=== PATIENT | female | born 1985 | race Caucasian/White ===

== ENCOUNTER → 2020-07-21 13:18 | Outpatient (BNVA) | payer OTHER, SELFPAY | PROVIDERS: PCP Internal Medicine; Referring Provider Internal Medicine; Visit Provider Nurse Practitioner | DX: R19.7 Diarrhea, unspecified (principal); R63.4 Abnormal weight loss; K64.2 Third degree hemorrhoids; R68.81 Early satiety; F32.9 Major depressive disorder, single episode, unspecified | CPT/HCPCS: 99212 ==

== ENCOUNTER → 2020-08-18 15:11 | Outpatient (BNVA) | payer OTHER, SELFPAY | PROVIDERS: PCP Internal Medicine; Visit Provider Nurse Practitioner | DX: Z76.89 Persons encountering health services in other specified circumstances (principal) ==

== ENCOUNTER 2020-10-24 08:55 | Outpatient (REF) | payer OTHER, SELFPAY ==
--- NOTE | ~2020-10-24 | US_ITS ---
EXAMINATION: US PELVIS COMPLETE US PELVIS TRANSVAGINAL CLINICAL INFORMATION: Right ovarian cyst. COMPARISON: Ultrasound pelvis 05/06/2020 TECHNIQUE: Transabdominal and transvaginal ultrasound of pelvis is performed. FINDINGS: The uterus is anteverted measuring 7.7 cm in length, 4.4 cm in AP and 7.0 cm in transverse dimension. Endometrial thickness is 0.19 cm. There are multiple nabothian cysts seen in the cervix with prominent uterine veins and bilateral pelvic congestion. There are small anechoic nabothian cysts in the cervix. Right ovary measures 3.6 x 2.6 x 2.9 cm and volume 13.9 mL. There is a complex echogenic cyst with internal echoes measuring 2.2 x 1.8 x 1.9 cm. Previously, it measured 1.9 x 1.7 x 1.7 cm. Left ovary measures 3.1 x 1.8 x 2.2 cm and volume 6.4 mL. Previously, it measured 2.4 x 2.1 x 1.8 cm and volume 4.8 mL. There is trace free fluid in the endometrium. Prominent uterine veins are visualized in bilateral adnexa suggestive of pelvic venous congestion. US/US transvaginal IMPRESSION: Minimal increase in the right complex ovarian cyst from 1.9 cm to 2.2 cm. Unremarkable left ovary. Small nabothian cysts in the cervix. The uterus is unremarkable.
--- NOTE | ~2020-10-24 | US_ITS ---
EXAMINATION: US PELVIS COMPLETE US PELVIS TRANSVAGINAL CLINICAL INFORMATION: Right ovarian cyst. COMPARISON: Ultrasound pelvis 05/06/2020 TECHNIQUE: Transabdominal and transvaginal ultrasound of pelvis is performed. FINDINGS: The uterus is anteverted measuring 7.7 cm in length, 4.4 cm in AP and 7.0 cm in transverse dimension. Endometrial thickness is 0.19 cm. There are multiple nabothian cysts seen in the cervix with prominent uterine veins and bilateral pelvic congestion. There are small anechoic nabothian cysts in the cervix. Right ovary measures 3.6 x 2.6 x 2.9 cm and volume 13.9 mL. There is a complex echogenic cyst with internal echoes measuring 2.2 x 1.8 x 1.9 cm. Previously, it measured 1.9 x 1.7 x 1.7 cm. Left ovary measures 3.1 x 1.8 x 2.2 cm and volume 6.4 mL. Previously, it measured 2.4 x 2.1 x 1.8 cm and volume 4.8 mL. There is trace free fluid in the endometrium. Prominent uterine veins are visualized in bilateral adnexa suggestive of pelvic venous congestion. US/US pelvic complete IMPRESSION: Minimal increase in the right complex ovarian cyst from 1.9 cm to 2.2 cm. Unremarkable left ovary. Small nabothian cysts in the cervix. The uterus is unremarkable.
== END 2020-10-24 08:56 | disposition home or self-care (01) ==
LOC: HO.HMGCX 08:55
PROVIDERS: Visit Provider Advanced Practice Midwife
DX: N83.201 Unspecified ovarian cyst, right side (principal)
CPT/HCPCS: 76830; 76856

== ENCOUNTER → 2020-10-28 15:49 | Outpatient (BNVA) | payer OTHER, SELFPAY | PROVIDERS: Visit Provider Advanced Practice Midwife ==

== ENCOUNTER 2020-10-31 10:04 | Outpatient (REF) | payer OTHER, SELFPAY ==
[2020-11-01 05:57] LABS: CA-125 24 U/mL (<35)
== END 2020-10-31 10:05 | disposition home or self-care (01) ==
LOC: HO.LAB 10:04
PROVIDERS: PCP Internal Medicine; Visit Provider Advanced Practice Midwife
DX: N83.299 Other ovarian cyst, unspecified side (principal); M53.3 Sacrococcygeal disorders, not elsewhere classified
CPT/HCPCS: 36415; 86304

== ENCOUNTER → 2020-11-20 14:52 | Outpatient (BNVA) | payer OTHER, SELFPAY | PROVIDERS: PCP Internal Medicine; Visit Provider Nurse Practitioner ==

== ENCOUNTER 2020-12-26 09:10 | Outpatient (REF) | payer OTHER, SELFPAY ==
--- NOTE | ~2020-12-26 | XR_ITS ---
EXAMINATION: DORSAL SPINE SERIES LUMBOSACRAL SPINE SERIES CLINICAL INFORMATION: Pain COMPARISON: None TECHNIQUE: 3 views of the dorsal spine. 3 views of lumbar sacral spine. FINDINGS: Dorsal spine: Vertebral bodies normally aligned. Disc spaces normal. No fracture or bone lesion. Surrounding soft tissues normal. No scoliosis. Lumbosacral spine: Vertebral bodies normally aligned. Disc spaces normal. Facets normal. No fracture or bone lesion. Surrounding soft tissues normal. Partially visualized pelvis including sacroiliac joints normal. XR/XR lumbar spine 2-3V IMPRESSION: Normal x-ray series of the dorsal spine and lumbar sacral spine.
--- NOTE | ~2020-12-26 | XR_ITS ---
EXAMINATION: XR PELVIS CLINICAL INFORMATION: Pain COMPARISON: Report of x-ray of the coccyx March 2012. TECHNIQUE: AP view of the pelvis. FINDINGS: The bones and soft tissues are normal. No fracture. Sacroiliac and hip joints are normal. Pubic symphysis is normal. No abnormal soft tissue calcifications. XR/XR pelvis 1-2V IMPRESSION: Normal pelvis.
--- NOTE | ~2020-12-26 | XR_ITS ---
EXAMINATION: DORSAL SPINE SERIES LUMBOSACRAL SPINE SERIES CLINICAL INFORMATION: Pain COMPARISON: None TECHNIQUE: 3 views of the dorsal spine. 3 views of lumbar sacral spine. FINDINGS: Dorsal spine: Vertebral bodies normally aligned. Disc spaces normal. No fracture or bone lesion. Surrounding soft tissues normal. No scoliosis. Lumbosacral spine: Vertebral bodies normally aligned. Disc spaces normal. Facets normal. No fracture or bone lesion. Surrounding soft tissues normal. Partially visualized pelvis including sacroiliac joints normal. XR/XR thoracic spine 2V IMPRESSION: Normal x-ray series of the dorsal spine and lumbar sacral spine.
[2020-12-26 10:59] LABS: MANUAL DIFF FLAG NO
[2020-12-26 11:06] LABS: Basophils Percent Auto 0.9 % (0-2); Eosinophils Absolute Auto 0.2 X10*3/uL (0.0-0.4); Eosinophils Percent Auto 4.2 % (0-4); Hematocrit 36.6 % (37-47); Hemoglobin 11.9 g/dl (12.0-16.0); Imm Gran Abs Auto 0.02 X10*3/uL (0.00-0.03); Imm Gran Pct Auto 0.5 % (0.0-0.4); Lymphocytes Absolute Auto 1.3 X10*3/uL (1.2-4.9); Lymphocytes Percent Auto 30.5 % (20-40); Mean Corpuscular HGB Conc 32.5 g/dl (31.0-35.0); Mean Corpuscular Hemoglobin 29.8 pg (27.0-33.0); Mean Corpuscular Volume 91.7 fL (80-98); Mean Platelet Volume 10.4 fL (9.4-12.3); Monocytes Absolute Auto 0.3 X10*3/uL (0.1-1.2); Monocytes Percent Auto 6.3 % (2-11); Neutrophils Absolute Auto 2.5 X10*3/uL (2.0-8.3); Neutrophils Percent Auto 57.6 % (45-73); Platelet Count 200 X10*3/uL (160-400); Red Blood Count 3.99 X10*6/uL (4.20-5.50); Red Cell Distribution Width 13.1 % (11.0-16.0); White Blood Count 4.3 X10*3/uL (4.8-10.8)
[2020-12-26 11:46] LABS: Alanine Aminotransferase 19 U/L (0-31); Albumin Level 4.6 g/dL (3.5-5.0); Alkaline Phosphatase 48 U/L (39-117); Anion Gap 12 (12-20); Aspartate Amino Transferase 20 U/L (5-31); Bilirubin Total 0.4 mg/dL (0.0-1.0); Blood Urea Nitrogen 8 mg/dL (9-16); C Reactive Protein 0.03 mg/dL (< or = 0.50); Calcium 9.2 mg/dL (8.4-10.2); Carbon Dioxide 30 mmol/L (22-29); Chloride 104 mmol/L (96-108); Estimated Glomerular Filt Rate > 60; Glucose Random 86 mg/dL (60-115); Potassium 4.9 mmol/L (3.3-5.1); Rheumatoid Factor < 15.0 IU/mL (<15.0); Sodium 141 mmol/L (135-145); Total Protein 7.3 g/dL (6.5-8.0)
[2020-12-26 11:48] LABS: Erythrocyte Sedimentation Rate 5 MM/HR (0-20)
[2020-12-28 14:47] LABS: Anti Nuclear Antibody Screen NEGATIVE (NEGATIVE)
[2020-12-28 23:02] LABS: Cyclic Citrullinated Peptide <16 UNITS
[2020-12-29 20:26] LABS: Vitamin D 25-OH, D2 <4 ng/mL; Vitamin D 25-OH, D3 26 ng/mL; Vitamin D 25-OH, Total 26 ng/mL (30-100)
[2021-01-01 15:11] LABS: HLA B27 Positive (Negative)
== END 2020-12-26 09:11 | disposition home or self-care (01) ==
LOC: HO.LAB 09:10
PROVIDERS: Absent Provider Internal Medicine; PCP Internal Medicine; Visit Provider Student in an Organized Health Care Education/Training Program
DX: M25.50 Pain in unspecified joint (principal); M53.3 Sacrococcygeal disorders, not elsewhere classified
CPT/HCPCS: 36415; 72070; 72100; 72170; 80053; 82306; 84443; 85025; 85652; 86038; 86039; 86140; 86200; 86431; 86812; 99202

== ENCOUNTER → 2021-01-23 13:47 | Outpatient (BNVA) | payer OTHER, SELFPAY | PROVIDERS: Visit Provider Student in an Organized Health Care Education/Training Program ==

== ENCOUNTER 2021-02-03 18:38 | Outpatient (REF) | payer OTHER, SELFPAY ==
--- NOTE | ~2021-02-03 | MR_ITS ---
EXAMINATION: MR PELVIS WITHOUT CONTRAST CLINICAL INFORMATION: M53.3 - Sacrococcygeal disorders, not elsewhere classified. Pain with symptoms x1 year COMPARISON: Radiograph dated 12/26/2020 TECHNIQUE: Multiplanar MR imaging was obtained through the pelvis without contrast on a 1.5 Amada magnet. FINDINGS: At the left SI joint, there is focal subarticular sclerosis and edema signal involving the iliac and sacral sides of the joint with small marginal osteophytes, likely due to mild degenerative arthrosis. Right SI joint appears relatively well preserved by comparison. Bone marrow signal is otherwise normal. Imaged portions of the hips are unremarkable. Pubic symphysis is normal on these images. The coccyx is normal in appearance on these images. No appreciable fractures or edema signal. Coccygeal angulation appears normal. There is a small left paracentral disc protrusion at the L5-S1 disc which abuts the exiting left S1 nerve roots in the subarticular zone. Musculature is normal in signal intensity. No appreciable atrophy, edema signal, or fatty replacement. Tendons are intact. No joint effusion or bursitis. There is a small amount of intraperitoneal free fluid, possibly physiologic. At the right ovary, there is a 1.9 x 1.5 x 2.1 cm cystic lesion with increased signal intensity on T1-weighted images and diminished signal intensity on STIR images. 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 No appreciable findings of acute sacroiliitis. Normal MR appearance of the coccyx. No acute findings in this region. A 2.1 cm right ovarian lesion which is favored to correspond to a dermoid cyst (mature cystic teratoma). An endometrioma is on the differential, though felt to be less likely. Small left paracentral disc protrusion at L5-S1.
== END 2021-02-03 18:39 | disposition home or self-care (01) ==
LOC: HO.MRI 18:38
PROVIDERS: Visit Provider Student in an Organized Health Care Education/Training Program
DX: M53.3 Sacrococcygeal disorders, not elsewhere classified (principal); N83.291 Other ovarian cyst, right side
CPT/HCPCS: 72195

== ENCOUNTER 2022-07-05 11:03 | Outpatient (REF) | payer OTHER, SELFPAY ==
--- NOTE | ~2022-07-05 | MM_ITS ---
EXAMINATION: MM DIAGNOSTIC DIGITAL BREAST TOMOSYNTHESIS, BILATERAL US DIAGNOSTIC ULTRASOUND BREAST, BILATERAL CLINICAL INFORMATION: 37-year-old with chronic bilateral palpable fullness periareolar upper outer left breast and periareolar upper outer right breast. Chronic bilateral milky nipple discharge with squeezing. No spontaneous discharge. Prior mammography at outside facility approximately 10 years ago, purged. The lifetime risk of breast cancer based on the Tyrer-Cuzick Model is 13%. COMPARISON: None (current study represents new baseline exam). TECHNIQUE: Digital breast tomosynthesis is performed in both the craniocaudal and mediolateral oblique views along with computer-aided detection (CAD). Synthesized 2D images are generated from the tomosynthesis. Ultrasound ultrasound bilateral breasts is targeted to the areas of clinical concern as well as the bilateral retroareolar and periareolar breast. Patient is able to point to the areas of clinical concern at time of imaging. Grayscale imaging and color Doppler are performed without and with harmonics. FINDINGS: The breasts are heterogeneously dense, which may obscure small masses (ACR BI-RADS breast composition Category c). There are no significant masses, abnormal calcifications, or other abnormalities. There is no architectural abnormality. No focal duct ectasia. The axilla and skin contours are unremarkable. Ultrasound bilateral breasts demonstrates no cystic or solid mass or architectural abnormality. No focal duct ectasia. No skin thickening or edema tracking in soft tissue planes. Results are discussed with the patient at time of visit. MM/MM tomosynthesis diagnostic BI IMPRESSION: 1. No mammographic evidence of malignancy. 2. Unremarkable bilateral targeted breast ultrasound ASSESSMENT: BI-RADS 1: Negative RECOMMENDATION: 1. Patient should be managed based on the clinical impression. If there remains a clinically palpable concern, further assessment may be considered with surgical consult. Chronic bilateral nipple discharge could be correlated with serum laboratories for systemic endocrine etiology. 2. Otherwise, routine annual screening mammography. This patient's information was entered into a reminder system with a target due date for their next mammogram.
== END 2022-07-05 11:04 | disposition home or self-care (01) ==
LOC: HO.MAMMO 11:03
PROVIDERS: Visit Provider Nurse Practitioner Family
DX: N63.15 Unspecified lump in the right breast, overlapping quadrants (principal); N63.21 Unspecified lump in the left breast, upper outer quadrant
CPT/HCPCS: 76642; 77062; 77066

== ENCOUNTER → 2022-08-23 11:09 | Outpatient (BNVA) | payer OTHER, SELFPAY | PROVIDERS: PCP Internal Medicine; Visit Provider Surgery | DX: K64.8 Other hemorrhoids (principal); K64.4 Residual hemorrhoidal skin tags; L29.0 Pruritus ani; Z80.41 Family history of malignant neoplasm of ovary | CPT/HCPCS: 46600; 99202 ==

== ENCOUNTER 2022-09-10 16:53 | Outpatient (REF) | payer OTHER, SELFPAY ==
--- NOTE | ~2022-09-10 | XR_ITS ---
EXAMINATION: XR CHEST CLINICAL INFORMATION: Cough COMPARISON: Previous chest x-ray from 2009 TECHNIQUE: 2 views of the chest were obtained. FINDINGS: The cardiac and mediastinal contours are normal. There are bibasilar infiltrates probably representing pneumonia. Upper lungs are clear. No pleural effusion or pneumothorax. There are degenerative changes of the spine. XR/XR chest 2V IMPRESSION: Bibasilar pneumonia. Findings will be communicated by the [facility] work flow inside sales consultant.
== END 2022-09-10 16:54 | disposition home or self-care (01) ==
LOC: HO.XRAY 16:53
PROVIDERS: PCP Internal Medicine; Visit Provider Internal Medicine
DX: R05.9 Cough, unspecified (principal)
CPT/HCPCS: 71046

== ENCOUNTER → 2022-10-06 08:54 | Outpatient (BNVA) | payer OTHER, SELFPAY | PROVIDERS: PCP Internal Medicine; Referring Provider Internal Medicine; Visit Provider Surgery | DX: Z71.2 Person consulting for explanation of examination or test findings (principal); Z80.41 Family history of malignant neoplasm of ovary | CPT/HCPCS: 99212 ==

== ENCOUNTER 2023-02-26 13:13 | Emergency (ER) | payer OTHER, SELFPAY ==
--- NOTE | ~2023-02-26 | CT_ITS ---
EXAMINATION: CT HEAD WITHOUT CONTRAST CLINICAL INFORMATION: Headache. COMPARISON: No relevant prior imaging. TECHNIQUE: Contiguous axial imaging was performed from the skull base to vertex without intravenous administration of contrast. This CT examination was performed using dose optimization techniques as appropriate, variously including the following: *Automated exposure control *Adjustment of mA and/or kV according to patient size (this includes techniques or standardized protocols for targeted exams where dose is matched to indication/reason for exam; i.e. extremities or head) *Use of iterative reconstruction technique DLP: 630 mGy-cm FINDINGS: There is no acute intracranial hemorrhage or abnormal extra-axial collection. No intracranial mass effect or midline shift. Lateral and third ventricles are normal. No hydroceles. Mckenzie-white matter differentiation is preserved and there is no evidence of acute territorial infarct. The calvarium and skull base are intact. Mastoid air cells and middle ear cavities are well aerated. No active paranasal sinus disease. CT/CT head/brain wo IV con IMPRESSION: Normal CT scan of the head.
[2023-02-26 13:16] VITALS: BP 125/80; PULSE 100; RESP 18; TEMP 36.7; O2SAT 98; BMI 19.8
--- NOTE | 2023-02-26 13:16 | ED_ITS ---
HPI - Neuro Symptoms/Deficit General Chief Complaint: Neuro Symptoms/Deficit Stated Complaint: quest of stroke Time Seen by Provider: 02/26/23 16:07 Source: patient Mode of arrival: ambulatory Limitations: no limitations History of Present Illness HPI Narrative: [age] year female with history of anxiety, OCD. Patient presented today for evaluation of 5-10 minutes episode of left eye blurry vision and seeing in 1 dimension, lasted for about 10 minutes and followed by headache behind the left eye, patient declined any weakness or numbness, patient stated that all her symptoms resolved completely after 20-30 minutes of the episodes, decline weakness, numbness, or speech problem. No fever, no chills, not using contraceptive hormonal therapy, no history of stroke or DVT. Related Data Previous Rx's Medication Instructions Recorded menthol 0.44 %-zinc oxide 20.6 % 1 appl topical QID PRN hemorrhoids 08/23/22 topical ointment (Calmoseptine) #113 grams psyllium husk 3.4 gram/5.4 gram 1 tsp PO BID #660 grams 08/23/22 oral powder (Metamucil) fluvoxamine 50 mg tablet 25 mg PO BEDTIME 90 days #45 tabs 02/27/23 Allergies Allergy/AdvReac Type Severity Reaction Status Date / Time milk Allergy Intermediate Stomach Verified 10/20/22 13:55 Upset fluoxetine [From Prozac] Allergy Mild rash Verified 10/20/22 13:55 Dust Mite Mixed Allergen Ext Allergy Intermediate red itchy Uncoded 10/20/22 13:55 rash Review of Systems Review of Systems: All other systems are reviewed and are negative Constitutional: Reports as per HPI and Reports no additional constitutional complaints Eyes: Reports as per HPI and Reports no additional eye complaints Reports system reviewed and no additional complaints, except as documented Cardiovascular: Reports as per HPI and Reports no additional cardiovascular com plaints Respiratory: Reports as per HPI and Reports no additional respiratory complaints Gastrointestinal: Reports as per HPI and Reports no additional gastrointestinal complaints Genitourinary: Reports no additional female genitourinary complaints Musculoskeletal: Reports no additional musculoskeletal complaints Skin/Breast: Reports system reviewed and no additional complaints, except as docu Psychiatric: Reports no additional psychiatric complaints Endocrine: Reports no additional endocrine complaints Hematologic/Lymphatic: Reports no additional hematologic/lymphatic complaints Allergic/Immunologic: Reports no additional allergic/immunologic complaints Reports system reviewed and no additional complaints, except as documented and Reports Abnormal speech present PMFSH Past Medical History Medical History Allergies Anxiety Chest wall pain Encounter to discuss test results Family history of ovarian cancer Hypovitaminosis D Iron deficiency anemia due to chronic blood loss Pruritus ani Right ovarian cyst Sacral pain Severe major depression without psychotic features Surgical History History of colonoscopy Hx of endoscopy Family History Family History Father Mental health disorder Substance use disorder Mother Hx of heart disorder Mental health disorder Substance use disorder Maternal Grandmother Ovarian cancer Social History Social History Household Members: Spouse and Children Housing: Apartment Alcohol intake: never Patient Tobacco Use Status: Former Tobacco user Tobacco use type: Cigarette Smoked in Last 30 Days: No e-Cigarette/Vaping Use: Never Used Second Hand Smoke Exposure: No Substance Use Type: Marijuana Advance Directives: No Advance Directives Information Provided: No Patient : No service: No Current occupational status: unemployed Cognitive needs: No Hearing needs: No Vision needs: No Physical Exam Vital Signs: Vital Signs: Last Vital Signs Temp 98.2 F 02/26/23 18:55 Pulse 61 02/26/23 18:55 Resp 16 02/26/23 18:55 BP 118/40 L 02/26/23 18:55 Pulse Ox 98 02/26/23 18:55 O2 Del Method Room Air 02/26/23 18:55 BMI result Body Mass Index 19.8 Vital signs have been reviewed as appeared to be correct. Blood pressure normal. Heart rate normal. Respiration rate normal. Temperature normal. Oxy gen saturation normal. Appearance: Alert. Oriented X3. No acute distress. Head: Normal external exam. Normocephalic. Atraumatic. No Harper signs noted. No raccoon eyes noted Eyes: PERRLA. EOMI. Conjunctiva and sclera normal. Eyelids normal. No left temporal tenderness on percussion. Visual acuity left 20/50 right 20/30, pupil reactive bilaterally, IOP equal 12 bilaterally, normal retinal exam. ENT: TM's Normal. Pharynx normal. Uvula midline. Moist mucous membranes. No trismus noted. No drooling noted. No muffled voice noted. Neck: Normal inspection. Neck supple. FROM. No adenopathy. Thyroid Normal. No meningeal signs. No neck mass noted. CVS: Normal heart rate and rhythm. Heart sound normal. No murmurs noted. Pulses normal throughout. Respiratory: No respiratory distress. Painless inspiration. Breath sounds normal. No wheezes/rales/rhonchi noted. Chest nontender. No accessory muscle usage noted or decreased air movement noted. Abdomen: Soft and nontender. Bowel sounds normal in all 4 quadrants. No distention noted. No organomegaly noted. No visible injury noted. 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 Unremarkable, normal inspection no venous congestion was noted, speculum and bimanual exam was not done. Back: No CVA tenderness. Full range of motion noted. Skin: Skin warm and dry. Normal skin color. Normal skin turgor. No rashes/les ions/lacerations noted. Extremities: No lower extremity edema. Extremities exhibit normal range of motion. Extremities nontender. Neuro: Oriented X 3. Cranial nerve exam: II-XII are grossly intact No motor deficit. No sensory deficit. Reflexes normal. Course Course Course Narrative: RME - 37 y/o female presents to the ER for evaluation of transient vision changes in the left eye that occurred at 9:30 am today, lasted 10-15 minutes. She reports vision was very blurry in the left eye and 1D followed by a headache in the left forehead area. Now back to baseline. Admits to bad anxiety the last few days but she is concerned about a TIA. Plan: visual acuity, full neuro exam, lab workup Reevaluation(s) Reevaluation #1: 37-year-old female history of anxiety came in with transient left visual disturbance, apparently patient neurologically intact, normal neuro exam, normal head CT making neurological etiology for the patient's symptoms is extremely unlikely, patient also had normal inflammatory marker with normal eye exam. Patient symptoms is likely due to anxiety or atypical migraine, or stress as patient admitted to having stressful time in her life. Medical Decision Making Differential Diagnosis Differential Diagnoses: The differential diagnosis associated with the presentation includes (TIA, CVA, temporal arteritis, closed angle glaucoma, hypoglycemia, anxiety, severe anemia, electrolyte abnormalities.) Admission/Observation Consideration of admission/observation: Escalation of care including admission/observation considered Lab Data MDM Lab Attestation statement: I reviewed the patient's lab results. 02/26/23 13:31 02/26/23 13:31 Labs: Lab Results 02/26/23 02/26/23 Range/Units 13:31 13:31 WBC 4.7 L (4.8-10.8) X10*3/uL RBC 3.92 L (4.20-5.50) X10*6/uL Hgb 11.8 L (12.0-16.0) g/dl Hct 34.4 L (37.0-47.0) % MCV 87.8 (80.0-98.0) fL MCH 30.1 (27.0-33.0) pg MCHC 34.3 (31.0-35.0) g/dl RDW 12.9 (11.0-16.0) % Plt Count 174 (160-400) X10*3/uL MPV 10.1 (9.4-12.3) fL Immature Gran % (Auto) 0.2 (0.0-0.4) % Neut % (Auto) 68.4 (45-73) % Lymph % (Auto) 24.7 (20-40) % [place] % (Auto) 4.9 (2-11) % Eos % (Auto) 0.9 (0-4) % Baso % (Auto) 0.9 (0-2) % Lymph # (Auto) 1.2 (1.2-4.9) X10*3/uL [place] # (Auto) 0.2 (0.1-1.2) X10*3/uL Eos # (Auto) 0.0 (0.0-0.4) X10*3/uL Baso # (Auto) 0.0 (0.0-0.2) X10*3/uL Abs Immat Gran (auto) 0.01 (0.00-0.03) X10*3/uL Absolute Neuts (auto) 3.2 (2.0-8.3) x10*3/uL Absolute Nucleated RBC 0.000 (0.0-0.012) X10*3/uL Nucleated RBC % (auto) 0.0 (0.0-0.2) /100WBC Sodium 140 (135-145) mmol/L Potassium 4.0 (3.3-5.1) mmol/L Chloride 106 (96-108) mmol/L Carbon Dioxide 26 (22-29) mmol/L Anion Gap 12 (12-20) BUN 10 (9-16) mg/dL Creatinine 0.74 (0.5-1.4) mg/dL Estim Creat Clear Calc 94.9 Estimated GFR > 60 Random Glucose 110 (60-115) mg/dL Calcium 9.5 (8.4-10.2) mg/dL Magnesium 2.0 (1.6-2.6) mg/dL Total Bilirubin 0.5 (0.0-1.0) mg/dL Direct Bilirubin 0.1 (0.0-0.5) mg/dL AST 19 (5-31) U/L ALT 14 (0-31) U/L Alkaline Phosphatase 46 (39-117) U/L C-Reactive Protein < 0.10 (< or = 0.50) mg/dL Total Protein 7.3 (6.5-8.0) g/dL Albumin 4.5 (3.5-5.0) g/dL Beta HCG, Quant < 2 mIU/mL Independent Interpretation I performed an independent interpretation of an: EKG (Normal sinus rhythm at 58 beats per minutes, normal axis deviation, normal intervals, no ST-T changes.) and CT Scan (Head: Unremarkable head CT.) Radiology Impression Discussion of test interpretation with radiology: I have reviewed the radiolog ist's reading. Discharge Plan Discharge Clinical Impression: Blurred vision, left eye Patient Disposition: Home, Self-Care Instructions: Blurred Vision (ED) Prescriptions: No Action fluvoxamine 50 mg tablet 25 mg PO BEDTIME 90 Days Qty: 45 1RF menthol-zinc oxide [Calmoseptine] 0.44-20.6 % ointment 1 appl topical QID PRN (Reason: hemorrhoids) Qty: 113 1RF Metamucil 3.4 gram/5.4 gram powder 1 tsp PO BID Qty: 660 0RF Rx Instructions: mix 1 tbsp into at least 4 oz water or juice before administering Referrals: Jose Juan Hernandez [Physician] - Blossom Solitario MD [Primary Care Provider] - Interventions: ED Discharge Assessment Last Done: 02/26/23 19:00 Discharge Date/Time: 02/26/23 19:01
[2023-02-26 13:34] LABS: MANUAL DIFF FLAG NO
[2023-02-26 13:40] LABS: Basophils Percent Auto 0.9 % (0-2); Eosinophils Percent Auto 0.9 % (0-4); Hematocrit 34.4 % (37.0-47.0); Hemoglobin 11.8 g/dl (12.0-16.0); Imm Gran Abs Auto 0.01 X10*3/uL (0.00-0.03); Imm Gran Pct Auto 0.2 % (0.0-0.4); Lymphocytes Absolute Auto 1.2 X10*3/uL (1.2-4.9); Lymphocytes Percent Auto 24.7 % (20-40); Mean Corpuscular HGB Conc 34.3 g/dl (31.0-35.0); Mean Corpuscular Hemoglobin 30.1 pg (27.0-33.0); Mean Corpuscular Volume 87.8 fL (80.0-98.0); Mean Platelet Volume 10.1 fL (9.4-12.3); Monocytes Absolute Auto 0.2 X10*3/uL (0.1-1.2); Monocytes Percent Auto 4.9 % (2-11); Neutrophils Absolute Auto 3.2 x10*3/uL (2.0-8.3); Neutrophils Percent Auto 68.4 % (45-73); Platelet Count 174 X10*3/uL (160-400); Red Blood Count 3.92 X10*6/uL (4.20-5.50); Red Cell Distribution Width 12.9 % (11.0-16.0); White Blood Count 4.7 X10*3/uL (4.8-10.8)
[2023-02-26 14:00] LABS: Alanine Aminotransferase 14 U/L (0-31); Albumin Level 4.5 g/dL (3.5-5.0); Alkaline Phosphatase 46 U/L (39-117); Anion Gap 12 (12-20); Aspartate Amino Transferase 19 U/L (5-31); Bilirubin Direct 0.1 mg/dL (0.0-0.5); Bilirubin Total 0.5 mg/dL (0.0-1.0); Blood Urea Nitrogen 10 mg/dL (9-16); Calcium 9.5 mg/dL (8.4-10.2); Carbon Dioxide 26 mmol/L (22-29); Chloride 106 mmol/L (96-108); Creatinine Clr Calc Pharmacy 94.9; Estimated Glomerular Filt Rate > 60; Glucose Random 110 mg/dL (60-115); Sodium 140 mmol/L (135-145); Total Protein 7.3 g/dL (6.5-8.0)
[2023-02-26 15:21] VITALS: BP 101/51; PULSE 62; RESP 16; TEMP 36.8; O2SAT 100
--- NOTE | 2023-02-26 16:37 | ECG_ITS ---
Test Reason : L EYE BLURRY Blood Pressure : / mmHG Vent. Rate : 057 BPM Atrial Rate : 057 BPM P-R Int : 114 ms QRS Dur : 090 ms QT Int : 416 ms P-R-T Axes : 042 081 056 degrees QTc Int : 404 ms Sinus bradycardia with marked sinus arrhythmia Otherwise normal ECG When compared with ECG of 16-JUN-2009 11:11, No significant change was found Referred By: Kris Woods Electronically Signed By:Santy Kay
[2023-02-26 16:40] LABS: C Reactive Protein < 0.10 mg/dL (< or = 0.50)
[2023-02-26 16:42] LABS: HCG Quantitative < 2 mIU/mL
--- NOTE | 2023-02-26 17:35 | PC.NURSE ---
pt had a negative ct scan and unremarkable head ct scan. she reports a headache over her left eye, no neuro signs noted otherwise
[2023-02-26 18:55] VITALS: BP 118/40; PULSE 61; RESP 16; TEMP 36.8; O2SAT 98
== END 2023-02-26 19:01 | disposition home or self-care (01) ==
PROVIDERS: Physician Assistant; Emergency Provider Emergency Medicine; PCP Internal Medicine
DX: H53.8 Other visual disturbances (principal); Z79.899 Other long term (current) drug therapy; Z87.891 Personal history of nicotine dependence; F12.90 Cannabis use, unspecified, uncomplicated
CPT/HCPCS: 36415; 70450; 80048; 80076; 83735; 84702; 85025; 86140; 93005; 99284; 99285

== ENCOUNTER 2024-08-30 09:11 | Outpatient (REF) | payer OTHER, SELFPAY ==
[2024-08-31 15:06] LABS: CT PCR NOT DETECTED (Not Detect.); NG PCR NOT DETECTED (Not Detect.)
[2024-08-31 17:22] LABS: Bacterial Vaginosis PCR NEGATIVE (Negative); Candida Group PCR NOT DETECTED (Not Detect); Candida glab krusei PCR NOT DETECTED (Not Detect); Trichomonas vaginalis PCR NOT DETECTED (Not Detect)
== END 2024-08-30 09:12 | disposition home or self-care (01) ==
LOC: HO.LAB 09:11
PROVIDERS: PCP Internal Medicine; Visit Provider Advanced Practice Midwife
DX: Z01.419 Encounter for gynecological examination (general) (routine) without abnormal findings (principal); N93.0 Postcoital and contact bleeding
CPT/HCPCS: 0352U; 81003; 81025; 87491; 87591; 99386; 99459

== ENCOUNTER 2024-08-30 09:11 | Outpatient (AMB) | payer OTHER, SELFPAY ==
--- NOTE | 2024-08-30 09:12 | MHC.OFFVIS ---
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 She denies any history of vaginal discharge, odor, urinary symptoms, or pelvic pain. Current control method is vasectomy. History of complex ovarian cyst in 2019 and was referred to see Dr. Rubalcava at [facility] which the patient reports she had continued care until this cyst had resolved. 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 She had deferred her Paps in the past but would like to complete her exam today. She admits to not eating a healthy diet and has a low appetite. Family history of ovarian cancer. [facility] Medical History (Updated 08/30/24 @ 12:48 by Shirley Salguero CNM) Autism PCB (post coital bleeding) Family history of ovarian cancer Pruritus ani Severe major depression without psychotic features Chest wall pain Iron deficiency anemia due to chronic blood loss Hypovitaminosis D Allergies Anxiety Sacral pain Surgical History Hx of endoscopy History of colonoscopy Family History Father Mental health disorder Substance use disorder Mother Hx of heart disorder Mental health disorder Substance use disorder Maternal Grandmother Ovarian cancer Social History Household Members: Spouse and Children Housing: Apartment Alcohol intake: never Patient Tobacco Use Status: Former Tobacco user Tobacco use type: Cigarette e-Cigarette/Vaping Use: Never Used Second Hand Smoke Exposure: No Substance Use Type: Marijuana service: No Current occupational status: unemployed Cognitive needs: No Hearing needs: No Vision needs: No Female Reproductive History Menstrual Date of last menstrual period: 08/02/24 control method: other (vasectomy) Total pregnancies: 2 Full term: 2 Number of Living Children: 2 History of abnormal pap smear: Yes (age 16 HPV) Review of Systems Const All systems reviewed & are unremarkable except as noted in HPI and below Reports as per HPI Eyes Reports no additional complaints ENT Reports no additional complaints Card Reports no additional complaints Resp Reports no additional complaints GI Reports as per HPI and Reports no additional complaints Reports as per HPI Musc Reports no additional complaints Skin/Breast Reports as per HPI Neuro Reports no additional complaints Psych Reports no additional complaints Endo Reports no additional complaints Edgar/Lymph Reports no additional complaints Aller/Immun Reports no additional complaints Physical Exam Vital Signs: Last Vital Signs BP 110/68 08/30/24 09:13 BMI result Body Mass Index 21.0 Const General: cooperative, healthy appearing and no acute distress Orientation/consciousness: patient oriented x3 HEENT Head: Yes normal to inspection Eyes General: appearance normal, both eyes and all related structures Neck Neck: Yes normal visual inspection Thyroid: Thyroid normal Chest Chest palpation & inspection: normal inspection of the chest and other (no puckering, dimpling, peau de orange, retraction, discharge, masses) Breast/axilla inspection: normal inspection of the breasts Breast/axilla palpation: normal palpation of the breasts Resp Effort & Inspection: normal respiratory effort GI Inspection: Yes normal to inspection Palpation (GI): Soft to palpation and Other GI palpation findings present (Nontender) Rectal Exam - Female: visual inspection normal General: Yes bladder normal to palpation External Female Exam: normal appearance of the urethra Speculum Exam - Vagina: normal appearance of the vagina, normal palpation and normal vaginal discharge Speculum Exam - Cervix: normal appearance of the cervix and normal palpation Bimanual exam- vagina & uterus: normal bimanual exam, normal palpation, uterine size normal, bladder normal to palpation, normal palpation, uterine shape normal and non-tender Bimanual Exam- Adnexa, other: normal adnexae Skin General skin exam: no rashes or lesions noted Rashes: no rashes Neuro General: patient oriented x3 Cognition (Neuro): normal cognition Extrem General: Yes normal to inspection Psych Attitude: cooperative Thought process: Normal thought process present Results AMB Test Urine AMB Test Urine Negative Last Edit by BOB Murray on 08/30/24 09:29 AMB Urinalysis, Automated UA Leukoctes 2 Flavio/uL Last Edit by BOB Murray on 08/30/24 09:29 UA Nitrite Negative Last Edit by Danyelle Kelley Abner on 08/30/24 09:29 UA Urobilinogen 0 mg/dL Last Edit by Danyelle Kelley Abner on 08/30/24 09:29 UA Protein 0.5 mg/dL Last Edit by Danyelle Kelley Abner on 08/30/24 09:29 UA pH 6.0 Last Edit by Danyelle Kelley Abner on 08/30/24 09:29 UA Blood 0.5 Nikolas/uL Last Edit by Danyelle Kelley Abner on 08/30/24 09:29 UA Specific [place] 1.030 Last Edit by Danyelle Kelley Abner on 08/30/24 09:29 UA Ketone Negative Last Edit by Danyelle Kelley Abner on 08/30/24 09:29 UA Bilirubin 0 mg/dL Last Edit by Danyelle Kelley Abner on 08/30/24 09:29 UA Glucose 0 mg/dL Last Edit by Danyelle Kelley [facility] on 08/30/24 09:29 Results Reviewed Results Reviewed: Laboratory Last Values Urine pH (Auto) 6.0 08/30/24 09:27 Specific [place] (Auto) 1.030 08/30/24 09:27 Urine Protein (Auto) 0.5 mg/dL 08/30/24 09:27 Glucose (UA)(Auto) 0 mg/dL 08/30/24 09:27 Urine Ketones (Auto) Negative 08/30/24 09:27 Urine Blood (Auto) 0.5 Nikolas/uL 08/30/24 09:27 Urine Nitrite (Auto) Negative 08/30/24 09:27 Urine Bilirubin (Auto) 0 mg/dL 08/30/24 09:27 Urine Urobilinogen (Auto) 0 mg/dL 08/30/24 09:27 Leukocyte Esterase (Auto) 2 Flavio/uL 08/30/24 09:27 Tst Clinic Negative 08/30/24 09:27 Assessment & Plan Assessment & Plan (1) PCB (post coital bleeding): Code(s): N93.0 - Postcoital and contact bleeding Category: Medical (2) Encounter for annual routine gynecological examination: Code(s): Z01.419 - Encounter for gynecological examination (general) (routine) without abnormal findings Plan Discussed: Current recommendations for pap smears per ASCCP guidelines. Pap smear obtained today. GC chlamydia and BV panel obtained. Await results for plan of care. Follow up pending pelvic ultrasound, okay to scheduled tele visit for results. Monitor any unusual bleeding patterns and report any concerns. Breast awareness and periodic breast exams. Mammogram yearly. Order placed to have it scheduled. Maintain a healthy lifestyle including a well balanced diet and routine exercise. Patient verbalizes understanding and agrees to the plan of care. She was given opportunity to ask questions and all questions were answered to the best of my ability. RTO in one year for annual quarter supervisor examination. This note is constructed using voice recognition software. While every effort has been made to ensure accuracy, registered pharmacy technician errors may have been included. Orders: Orders Bacterial Vaginosis Panel Today N93.0 - Postcoital and contact bleeding HPV High risk Today N93.0 - Postcoital and contact bleeding Pap Smear Today N93.0 - Postcoital and contact bleeding AMB HCG Urine Test Today N93.9 - Abnormal uterine and vaginal bleeding, unspecified AMB Urinalysis Automated Today N93.9 - Abnormal uterine and vaginal bleeding, unspecified US pelvic and transvaginal Today N93.0 - Postcoital and contact bleeding CT NG by PCR Today N93.0 - Postcoital and contact bleeding Coding Level of Care Code New Pt Prev Care 40-64y(06963) Diagnoses PCB (post coital bleeding) N93.0 Encounter for annual routine gynecological examination Z01.419
[2024-08-30 09:13] VITALS: BP 110/68; BMI 21.0
== END 2024-08-30 09:50 | disposition home or self-care (01) ==
LOC: HO.HWSW 09:11
PROVIDERS: PCP Internal Medicine; Visit Provider Advanced Practice Midwife
DX: Z01.419 Encounter for gynecological examination (general) (routine) without abnormal findings (principal); N93.0 Postcoital and contact bleeding; N93.9 Abnormal uterine and vaginal bleeding, unspecified; Z32.02 Encounter for pregnancy test, result negative
CPT/HCPCS: 99386

== ENCOUNTER 2024-08-30 09:52 | Outpatient (REF) | payer OTHER, SELFPAY ==
[2024-08-31 12:07] LABS: HPV 16,18/45 See PAP report
== END 2024-08-30 09:53 | disposition home or self-care (01) ==
LOC: HO.LNP 09:52
PROVIDERS: Visit Provider Advanced Practice Midwife
DX: N93.0 Postcoital and contact bleeding (principal); R87.610 Atypical squamous cells of undetermined significance on cytologic smear of cervix (ASC-US)
CPT/HCPCS: 87624; 88175

== ENCOUNTER 2024-09-20 15:29 | Outpatient (REF) | payer OTHER, SELFPAY ==
--- NOTE | ~2024-09-20 | US_ITS ---
CLINICAL HISTORY: N93.0 - Postcoital and contact bleeding US pelvis transabdominal and transvaginal with Doppler Comparison: None Findings: Transabdominal scanning performed for overall anatomy. Transvaginal scanning performed for additional detail. Uterus is 9.5 cm length. Normal myometrium. Endometrium 5 mm on the right and 6 mm on the left thickness. Right ovary 2.7 x 2.2 x 2.2 cm. There are follicles. Left ovary 1.8 x 2 x 2 cm. 1.8 x 1.3 x 1.6 cm cyst. Normal color Doppler with arterial/venous spectral tracing of both ovaries. No free fluid. IMPRESSION: No evidence of ovarian torsion. Possible septate uterus. This document has been electronically signed by: Kari Sinclair MD on 09/25/2024 17:54:10
== END 2024-09-20 15:30 | disposition home or self-care (01) ==
LOC: HO.US 15:29
PROVIDERS: PCP Internal Medicine; Visit Provider Advanced Practice Midwife
DX: N93.0 Postcoital and contact bleeding (principal)
CPT/HCPCS: 76830; 76856

== ENCOUNTER → 2024-09-20 15:40 | Outpatient (BNV) | payer OTHER, SELFPAY | PROVIDERS: PCP Internal Medicine; Visit Provider Nuclear Medicine | DX: N93.0 Postcoital and contact bleeding (principal) | CPT/HCPCS: 76830; 76856 ==

== ENCOUNTER 2024-10-04 07:46 | Outpatient (AMB) | payer OTHER, SELFPAY ==
--- NOTE | 2024-10-04 07:47 | MHC.OFFVIS ---
Intake Visit Reasons: US Follow up Intake Note: cell #[phone] Executive Associate: Executive Associate Present Allergies milk Allergy (Intermediate, Verified 08/30/24 09:21) Stomach Upset fluoxetine [From Prozac] Allergy (Mild, Verified 08/30/24 09:21) rash Dust Mite Mixed Allergen Ext Allergy (Intermediate, Uncoded 10/20/22 13:55) red itchy rash Is last menstrual period known: Yes Last menstrual period: 09/13/24 HPI Comments Details: Tele javy visit 08:00-08:21. Video call was disrupted due to patient's screen freezing, land line utilized to return the call and went to voicemail at 08:23. Patient presents via phone to discuss: Ultrasound results, history of postcoital bleeding x1 episode lasting 1 week. Cultures all negative from 08/30/2024. Last Pap ascus negative HPV. Patient concerns today: 1. She thinks she may have a prolapse, she reports having too force stool out manually since her last childbirth 10 years ago. 2. She is wondering if she has PCOS due to adult onset acne and cystic ovaries. 3. Heavy menstrual bleeding, cycles last 6 days heavy for 3 to 4/6. Timing of cycles vary a few days earlier or late. 4. Severe gas pains most days, causing her to double over. She has seen GI in the past and was very upset that her appointment was set up with a male provider and has never returned. She admits to not hydrating well, fluid intake consists of carbonated beverages, she generally does not eat vegetables, and requires a special Chipotle dressing that she can dip everything into, she feels this is a sensory thing related to autism. [facility] Medical History (Updated 10/04/24 @ 15:28 by Shirley Salguero CNM) Difficulty in ability to defecate Autism PCB (post coital bleeding) Family history of ovarian cancer Pruritus ani Severe major depression without psychotic features Chest wall pain Iron deficiency anemia due to chronic blood loss Hypovitaminosis D Allergies Anxiety Sacral pain Surgical History Hx of endoscopy History of colonoscopy Family History Father Mental health disorder Substance use disorder Mother Hx of heart disorder Mental health disorder Substance use disorder Maternal Grandmother Ovarian cancer Social History Household Members: Spouse and Children Housing: Apartment Alcohol intake: never Patient Tobacco Use Status: Former Tobacco user Tobacco use type: Cigarette e-Cigarette/Vaping Use: Never Used Second Hand Smoke Exposure: No Substance Use Type: Marijuana service: No Current occupational status: unemployed Cognitive needs: No Hearing needs: No Vision needs: No Female Reproductive History Menstrual Date of last menstrual period: 09/13/24 Review of Systems Const All systems reviewed & are unremarkable except as noted in HPI and below Endo Reports no additional complaints Physical Exam Const General: cooperative, healthy appearing and no acute distress Psych Appearance: well kempt Attitude: cooperative Thought process: Normal thought process present Telehealth Telehealth Telehealth Platform: [employer] Location of provider rendering services: practice address Location of patient: address on file Patient Identification confirmed using: Name, : Yes Telehealth method: video Patient verbally consented to treatment: Yes Patient verbally consented to billing insurance company: Yes Patient informed of any privacy concerns related to visit: Yes Results Reviewed Results Reviewed: [address] [address] Ultrasound Report Signed Patient: Yessenia Osuna MR#: [id number] : 1985 Acct:[id number] Age/Sex: 39 / F ADM Date: 09/20/24 Loc: HO.US Attending Dr: Shirley Salguero CNM Ordering Physician: Shirley Salguero CNM Date of Service: 09/20/24 Procedure(s): US pelvic and transvaginal Accession Number(s): [id number] cc: Shirley Salguero CNM; Blossom Solitario MD~ CLINICAL HISTORY: N93.0 - Postcoital and contact bleeding US pelvis transabdominal and transvaginal with Doppler Comparison: None Findings: Transabdominal scanning performed for overall anatomy. Transvaginal scanning performed for additional detail. Uterus is 9.5 cm length. Normal myometrium. Endometrium 5 mm on the right and 6 mm on the left thickness. Right ovary 2.7 x 2.2 x 2.2 cm. There are follicles. Left ovary 1.8 x 2 x 2 cm. 1.8 x 1.3 x 1.6 cm cyst. Normal color Doppler with arterial/venous spectral tracing of both ovaries. No free fluid. IMPRESSION: No evidence of ovarian torsion. Possible septate uterus. This document has been electronically signed by: Kari Sinclair MD on 09/25/2024 17:54:10 Dictated By: Kari Sinclair MD Signed By: <Electronically signed by Kari Sinclair MD in OV> 09/25/241754 DD/ 53 TD/TT: 09/25/241753 Sales Incentive Analyst: Assessment & Plan Assessment & Plan (1) Difficulty in ability to defecate: Code(s): K59.00 - Constipation, unspecified Category: Medical Plan: Discussed: Concerns for defecation, recommended increasing water intake, omitting carbonated beverages and gas producing foods and fluids. Regular routine exercise in the a.m., increasing fiber in the diet with whole foods raw vegetables whole grains. GI referral placed to female provider only, accepting of referral Additional referral placed for pelvic floor therapy for evaluation of pelvic floor weakness. (2) PCB (post coital bleeding): Code(s): N93.0 - Postcoital and contact bleeding Category: Medical Plan: Advised to call if further bleeding occurs for further evaluation. (3) Encounter to discuss test results: Code(s): Z71.2 - Person consulting for explanation of examination or test findings (4) Acne: Code(s): L70.9 - Acne, unspecified Qualifiers: Acne type: unspecified acne Qualified Code(s): L70.9 - Acne, unspecified Plan: Lab work-prolactin, 17 hydroxy progesterone, beta HCG, testosterone levels. We will need to schedule follow up in person to discuss test results. (5) Heavy menstrual bleeding: Code(s): N92.0 - Excessive and frequent menstruation with regular cycle Qualifiers: Menorrhagia type: with regular cycle Qualified Code(s): N92.0 - Excessive and frequent menstruation with regular cycle Plan: Lab work-TSH CBC. Plan Discussed: Ultrasound findings, see report-possible septate uterus, follicles, simple cyst. The patient expressed understanding and agreement with the plan of care. All of her questions and concerns were addressed to the best of my ability. This note is constructed using voice recognition software. While every effort has been made to ensure accuracy, typo machine operator errors may have been included. I spent approximately 45 minutes reviewing the patient records, speaking with the patient, documenting, and referrals/order placement. Orders: Orders Complete Blood Count no Diff Today N92.0 - Excessive and frequent menstruation with regular cycle Thyroid Stimulating Hormone Today N92.0 - Excessive and frequent menstruation with regular cycle, N92.1 - Excessive and frequent menstruation with irregular cycle HCG Quantitative Today N92.0 - Excessive and frequent menstruation with regular cycle 17 Hydroxyprogesterone Today L68.0 - Hirsutism Testosterone, Free/Total Today L68.0 - Hirsutism Prolactin Today L68.0 - Hirsutism Referrals Pelvic House Calls Nurse Practitioner Referral K59.00 - Constipation, unspecified Gastroenterology Referral K59.00 - Constipation, unspecified Coding Level of Care Code Tele Est Pt Level 3 (55679) Diagnoses Difficulty in ability to defecate K59.00 PCB (post coital bleeding) N93.0 Encounter to discuss test results Z71.2 Acne, unspecified acne type L70.9 Acne type: unspecified acne Menorrhagia with regular cycle N92.0 Menorrhagia type: with regular cycle
== END 2024-10-04 15:29 | disposition home or self-care (01) ==
LOC: HO.HWS 07:46
PROVIDERS: PCP Internal Medicine; Visit Provider Advanced Practice Midwife
DX: K59.00 Constipation, unspecified (principal); N93.0 Postcoital and contact bleeding; Z71.2 Person consulting for explanation of examination or test findings; L70.9 Acne, unspecified; N92.0 Excessive and frequent menstruation with regular cycle
CPT/HCPCS: 98005

== ENCOUNTER 2025-04-22 14:32 | Outpatient (REF) | payer OTHER, SELFPAY ==
[2025-04-22 15:56] LABS: MANUAL DIFF FLAG NO
[2025-04-22 16:00] LABS: Hematocrit 37.5 % (37.0-47.0); Hemoglobin 12.6 g/dl (12.0-16.0); Imm Gran Abs Auto 0.01 X10*3/uL (0.00-0.03); Imm Gran Pct Auto 0.2 % (0.0-0.4); Lymphocytes Absolute Auto 1.5 X10*3/uL (1.2-4.9); Mean Corpuscular HGB Conc 33.6 g/dl (31.0-35.0); Mean Corpuscular Hemoglobin 30.4 pg (27.0-33.0); Mean Corpuscular Volume 90.6 fL (80.0-98.0); NRBC Abs Auto 0.000 X10*3/uL (0.0-0.012); NRBC Pct Auto 0.0 /100WBC (0.0-0.2); Platelet Count 195 X10*3/uL (160-400); Red Blood Count 4.14 X10*6/uL (4.20-5.50); White Blood Count 5.3 X10*3/uL (4.8-10.8)
[2025-04-22 16:28] LABS: Iron 78 mcg/dL (30-160); Percent Iron Saturation 25 % (15-50); Total Iron Binding Capacity 318 mcg/dL (228-428); Unsaturated Iron Binding 240 ug/dL
[2025-04-22 16:45] LABS: Thyroid Stimulating Hormone 1.74 uIU/mL (0.32-4.0)
[2025-04-22 16:57] LABS: Folate 7.2 ng/mL (> or = 4.0); Vitamin B12 526 pg/mL (200-900)
[2025-04-23 07:33] LABS: Follicle Stimulating Hormone 6.3 mIU/mL
[2025-04-26 17:28] LABS: Testosterone, Free 1.8 pg/mL (0.1-6.4)
== END 2025-04-22 14:33 | disposition home or self-care (01) ==
LOC: HO.LAB 14:32
PROVIDERS: Absent Provider Advanced Practice Midwife; PCP Internal Medicine; Visit Provider Internal Medicine
DX: Z00.00 Encounter for general adult medical examination without abnormal findings (principal); L68.0 Hirsutism; N92.0 Excessive and frequent menstruation with regular cycle; E55.9 Vitamin D deficiency, unspecified; D50.0 Iron deficiency anemia secondary to blood loss (chronic); F33.0 Major depressive disorder, recurrent, mild; N92.6 Irregular menstruation, unspecified
CPT/HCPCS: 36415; 82306; 82607; 82672; 82746; 83001; 83002; 83498; 83540; 84144; 84146; 84402; 84403; 84443; 84702; 85025; 96127; 99212; 99396

== ENCOUNTER 2025-04-22 14:32 | Outpatient (AMB) | payer OTHER, SELFPAY ==
--- NOTE | 2025-04-22 14:45 | MHC.PC.OV ---
Vital Signs 04/22/25 14:46 Height 5 ft 6 in Weight 125 lb BMI 20.2 BP 118/68 Blood Pressure Location Lt brachial Position Sitting Intake Visit Reasons: PE Intake Note: Patient here for a physical exam Endoscopic Technician Required: No Accompanied by: Self / Same As Patient Allergies milk Allergy (Intermediate, Verified 04/22/25 14:52) Stomach Upset fluoxetine (From Prozac) Allergy (Mild, Verified 04/22/25 14:52) rash Dust Mite Mixed Allergen Ext Allergy (Intermediate, Uncoded 04/22/25 14:52) red itchy rash Medication List - Last Reconciled 04/22/25 by Blossom Butler MD No Known Home Meds Tobacco use date assessed: 04/22/25 Dental Screening Dental Screen Date: 04/22/25 Did you have a dental visit in the last 12 months?: Yes Did you have a dental problem in the last 6 months where you did not have access to dental care?: No Was dental information given to patient?: Patient has dentist HPI HPI Comments History of Present Illness Details The patient is a 39-year-old female presenting for a physical exam and evaluation of fatigue and abnormal menses. She reports persistent fatigue and tiredness, though the duration is unspecified. Additionally, she experiences abnormal menstrual cycles, but further details are not provided. Preventative care measures include an overdue mammogram, a Pap smear completed in 2023, and administration of the Zetida vaccine. [facility] Medical History (Updated 04/22/25 @ 15:27 by Blossom Btuler MD) Difficulty in ability to defecate Autism PCB (post coital bleeding) Family history of ovarian cancer Pruritus ani Severe major depression without psychotic features Chest wall pain Iron deficiency anemia due to chronic blood loss Hypovitaminosis D Allergies Anxiety Sacral pain Surgical History Hx of endoscopy History of colonoscopy Family History Father Mental health disorder Substance use disorder Mother Hx of heart disorder Mental health disorder Substance use disorder Maternal Grandmother Ovarian cancer Social History Household Members: Spouse and Children Housing: Apartment Alcohol intake: never Patient Tobacco Use Status: Former Tobacco user Tobacco use type: Cigarette e-Cigarette/Vaping Use: Never Used Second Hand Smoke Exposure: No Substance Use Type: Marijuana service: No Current occupational status: unemployed Cognitive needs: No Hearing needs: No Vision needs: No Questionnaire PHQ-9 Over the last 2 weeks, how often have you been bothered by any of the following problems? 1. Little interest or pleasure in doing things: more than half the days 2. Feeling down, depressed, or hopeless: more than half the days 3. Trouble falling or staying asleep, or sleeping too much: not at all 4. Feeling tired or having little energy: more than half the days 5. Poor appetite or overeating: several days 6. Feeling bad about yourself - or that you are a failure or have let yourself or your family down: more than half the days 7. Trouble concentrating on things, such as reading the newspaper or watching television: several days 8. Moving or speaking so slowly that other people could have noticed. Or the opposite - being so fidgety or restless that you have been moving around a lot more than usual: several days 9. Thoughts that you would be better off or of hurting yourself in some way: not at all Total score: 11 Depression Screening Interpretation: Positive Depression Screening Follow-up: Existing condition, Community Mental Health Worker F/U and Follow-up Visit Requested Depression Screening Done: Yes 77382 - PHQ-9 Billing: Yes Source: Developed by Drs. Guevara Prado, Lissett Hsu, Roshan Bowles and colleagues, with an educational dominique from [employer]. Thrive Questionnaire Date Thrive assessed: 04/22/25 I am a: Patient What is your living situation today?: I have a steady place to live Within the past 12 months, did the food you bought not last and you didn't have the money to get more?: Sometimes True Within the past 12 months, did you worry whether your food would run out before you got money to buy more?: Sometimes True Do you have trouble paying for medicines?: I choose not to answer this question Do you have trouble getting transportation to medical appointments?: No Do you have trouble paying your heating and electricity bill?: I choose not to answer this question Do you have trouble taking care of your child, family member or friend?: No Do you have trouble with day-to-day activities such as bathing, preparing meals, shopping, managing finances, etc.?: No Are you currently unemployed and looking for a job?: No Are you interested in more education?: No Please select the resources that you would like help with: Food and Utilities Currently or been in a relationship where the following occur: No concerns reported THRIVE Score: 2 AUDIT C Alcohol Use Questionnaire (AUDIT-C) 1. How often do you have a drink containing alcohol?: Never Total Score: 0 Score Reviewed/Action Taken: No MILENA-7 AMB Questionnaire MILENA-7 Date MILENA - 7 assessed: 04/22/25 Feeling nervous, anxious, or on edge: 1 = Several days Not being able to stop or control worryin = Several days Worrying too much about different things: 1 = Several days Trouble relaxin = Several days Being so restless that it is hard to sit still: 1 = Several days Becoming easily annoyed or irritable: 1 = Several days Feeling afraid as if something awful might happen: 1 = Several days Total MILENA-7 score (0-4 normal; 5-9 mild; 10-14 moderate; 15-21 severe): 7 Source: Developed by Drs. Guevara Prado, Lissett Hsu, Roshan Bowles and colleagues, with an educational dominique from [employer]. MILENA-7 Assessment Billing MILENA-7 Assessment Tool: MILENA-7 Assessment 54282 Review of Systems Const All systems reviewed & are unremarkable except as noted in HPI and below Card Denies chest pain at rest, Denies chest pain with activity, Denies edema, Denies irregular heart rhythm, Denies claudication, Denies dyspnea, Denies dyspnea on exertion, Denies orthopnea, Denies paroxysmal nocturnal dyspnea and Denies slow heart rate Resp Denies cough, Denies dyspnea and Denies dyspnea on exertion GI Denies abdominal pain, Denies change in bowel habits, Denies excessive flatus, Denies nausea and Denies vomiting Denies urinary incontinence, Denies urinary hesitancy and Denies urinary urgency Musc Denies abnormal gait, Denies atrophy, Denies deformity and Denies limited range of motion Skin/Breast Denies bleeding lesions, Denies changing lesions and Denies rash Neuro Denies abnormal gait, Denies behavioral changes and Denies lack of coordination Psych Denies behavioral changes Physical exam (Primary Care) Vital Signs: Last Vital Signs BP 118/68 04/22/25 14:46 BMI result Body Mass Index 20.2 Tobacco/Smoking Status: Tobacco use Status Tobacco use date assessed 04/22/25 04/22/25 14:50 Patient Tobacco Use Status Former Tobacco user 04/22/25 14:50 Tobacco use type Cigarette 04/22/25 14:50 e-Cigarette/Vaping Use Never Used 04/22/25 14:50 PHQ-9: PHQ-9 Score PHQ-9: Total score 11 04/22/25 14:50 Depression Screening Interpretation: Positive Depression Screening Follow-up: Existing condition, Community Mental Health Worker F/U and Follow-up Visit Requested Thrive Assessment: Date of Thrive Assessment Date Thrive assessed 04/22/25 04/22/25 14:50 Currently or been in a relationship where the following occur: No concerns reported HENMT Head: Yes normal to inspection, Yes normocephalic and Yes atraumatic Ears: external ears normal Eyes General: appearance normal, both eyes and all related structures Eyelids: Yes eyelids normal Conjunctivae: conjunctivae normal Neck Neck: Yes normal visual inspection and Yes supple Chest Breast/axilla inspection: normal inspection of the axillae and abnormal inspection of the breast (Left breast lump at 02:00) Breast/axilla palpation: normal palpation of the axillae and abnormal palpation of the breast Resp Effort & Inspection: normal respiratory effort Auscultation: clear to auscultation bilaterally Cardio Jugular venous distension: no JVD Rate: regular rate Rhythm: regular rhythm Heart sounds: S1 normal heart sound present and S2 normal heart sound present GI Inspection: Yes normal to inspection Palpation (GI): Soft to palpation and nontender Auscultation: normal bowel sounds Skin General skin exam: no rashes or lesions noted Neuro General: no focal motor deficits Extrem General: Yes full ROM Psych Appearance: grossly normal Coding Level of Care Code Est Pt Level 3 (03321) Est Pt Prev Care 40-64y(82421) Diagnoses Physical exam Z00.00 Fatigue R53.83 Mild recurrent major depression F33.0 Abnormal menses N92.6 Additional Codes PHQ-9 - 74769 - PHQ-9 Billing: Yes ([id number]) MILENA-7 Assessment Billing - MILENA-7 Assessment Tool: MILENA-7 Assessment 99672 ([id number]) Time Spent (min) 33 Assessment & Plan Assessment & Plan (1) Physical exam: Code(s): Z00.00 - Encounter for general adult medical examination without abnormal findings Category: Medical (2) Fatigue: Code(s): R53.83 - Other fatigue Category: Medical (3) Mild recurrent major depression: Code(s): F33.0 - Major depressive disorder, recurrent, mild Category: Medical (4) Abnormal menses: Code(s): N92.6 - Irregular menstruation, unspecified Category: Medical Plan The patient was advised to consult with an FLOOR COVERING PRINTER for further evaluation of her abnormal menses. Blood work was suggested to investigate the cause of her fatigue. Patient was informed and verbally consented to the use of an ambient scribe for clinic note documentation during this visit. Orders: Orders Vitamin D 25-OH Total Today E55.9 - Vitamin D deficiency, unspecified, Z00.00 - Encounter for general adult medical examination without abnormal findings IRON PROFILE Today D50.0 - Iron deficiency anemia secondary to blood loss (chronic), D64.9 - Anemia, unspecified Complete Blood Count Auto Diff Today D50.0 - Iron deficiency anemia secondary to blood loss (chronic), D64.9 - Anemia, unspecified Thyroid Stimulating Hormone Today R53.83 - Other fatigue Estrogen Today N92.6 - Irregular menstruation, unspecified Progesterone Today N92.6 - Irregular menstruation, unspecified Lutenizing Hormone Today N92.6 - Irregular menstruation, unspecified US breast LT limited Today N63.20 - Unspecified lump in the left breast, unspecified quadrant Lipid Panel Today Z00.00 - Encounter for general adult medical examination without abnormal findings Comprehensive [place]. Panel Fast Today Z00.00 - Encounter for general adult medical examination without abnormal findings Vitamin B12 and Folate Today R53.83 - Other fatigue Follicle Stimulating Hormone Today N92.6 - Irregular menstruation, unspecified MM diagnostic mammo BI Today N63.20 - Unspecified lump in the left breast, unspecified quadrant
[2025-04-22 14:46] VITALS: BP 118/68; BMI 20.2
== END 2025-04-22 15:34 | disposition home or self-care (01) ==
LOC: HO.HMCH 14:33
PROVIDERS: PCP Internal Medicine; Visit Provider Internal Medicine
DX: Z00.00 Encounter for general adult medical examination without abnormal findings (principal); R53.83 Other fatigue; F33.0 Major depressive disorder, recurrent, mild; N92.6 Irregular menstruation, unspecified

== ENCOUNTER 2025-05-27 08:03 | Outpatient (AMB) | payer OTHER, SELFPAY ==
--- NOTE | 2025-05-27 08:07 | A.OFFVIS_ITS ---
Vital Signs 05/27/25 08:10 Height 5 ft 6 in Weight 125 lb BMI 20.2 Intake Visit Reasons: New Pt- pain in right foot Intake Note: Yessenia is a 39 year old female who presents today as a new patient for an evaluation of her right foot pain. She mentions pain has been going on for 2 months and has tried taking Motrin, Tylenol which did not provide relief . Patient reports no injury has occurred and the pain is located from her arch to the top of the foot, pain increases while ambulating. She mentions her left foot is starting to hurt as well Allergies milk Allergy (Intermediate, Verified 05/27/25 08:09) Stomach Upset fluoxetine (From Prozac) Allergy (Mild, Verified 05/27/25 08:09) rash Dust Mite Mixed Allergen Ext Allergy (Intermediate, Uncoded 04/22/25 14:52) red itchy rash Medication List - Last Reconciled 05/27/25 by Heath Soliman DPM naproxen (Naprosyn) 500 mg PO BID PRN HPI HPI New Pt- pain in right foot: Details: 39 y/o female no pertinent past medical history presents for bilateral foot pain, right worse than left. She states the pain is a deep throbbing pain at the level of her arch. It starts with activity and tends to persist when she is resting at night. Pain has worsened over the past 1.5 months. 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 The pain improves when she isn't working. She also notes a history of left hip and lumbo-sacral arthritis. [facility] Medical History (Updated 05/27/25 @ 08:40 by Heath Soliman DPM) Difficulty in ability to defecate Autism PCB (post coital bleeding) Family history of ovarian cancer Pruritus ani Severe major depression without psychotic features Chest wall pain Iron deficiency anemia due to chronic blood loss Hypovitaminosis D Allergies Anxiety Sacral pain Surgical History Hx of endoscopy History of colonoscopy Family History Father Mental health disorder Substance use disorder Mother Hx of heart disorder Mental health disorder Substance use disorder Maternal Grandmother Ovarian cancer Social History Household Members: Spouse and Children Housing: Apartment Alcohol intake: never Patient Tobacco Use Status: Former Tobacco user Tobacco use type: Cigarette e-Cigarette/Vaping Use: Never Used Second Hand Smoke Exposure: No Substance Use Type: Marijuana service: No Current occupational status: unemployed Cognitive needs: No Hearing needs: No Vision needs: No Review of Systems Const All systems reviewed & are unremarkable except as noted in HPI and below Physical Exam Vital Signs: BMI result Body Mass Index 20.2 Extrem Other: *Bilateral Lower Extremity Focused Exam Vascular: DP/PT 2/4, CFT<3s to digits, TG warm to cool, no pedal edema Derm: No open wounds or lacerations, no ecchymosis. Neuro: Protective sensation grossly intact to bilateral lower extremities. MSK: Moderate tenderness on palpation along the central plantar fascia band bilaterally, right worse than left. Positive pain elicited on windlass mechanism to the right foot. High arch cavus foot type 4/5, flexible. Mild dorsal midfoot bony protrusion bilaterally. Assessment & Plan Assessment & Plan (1) Plantar fasciitis, bilateral: Code(s): M72.2 - Plantar fascial fibromatosis Category: Medical Plan: * Discussed etiology of her feet pain. Differential diagnosis includes plantar fasciitis, posterior tibial tendinitis. * Rx X-ray 3V bilateral feet * Recommended at home stretching and range of motion exercises including calf- stretches, frozen water bottle therapy, band-therapy. * Referred to physical therapy. * Recommended supportive shoe-wear with arch-supports to avoid increased loading on her plantar fascia band. * Rx Naprosyn 500mg BID x 3 weeks. * Follow up in 3 weeks (2) Cavus deformity of both feet: Code(s): Q66.71 - Congenital pes cavus, right foot; Q66.72 - Congenital pes cavus, left foot Category: Medical Plan: Recommended supportive shoe-wear with arch-supports to avoid increased loading on her plantar fascia band. Orders: Orders XR Foot Eric 3V Today M72.2 - Plantar fascial fibromatosis PT Evaluation and Treatment Today M72.2 - Plantar fascial fibromatosis Medications: New naproxen (Naprosyn) 500 mg PO BID PRN 30 tabs 0RF pain Coding Level of Care Code Est Pt Level 3 (50927) Diagnoses Plantar fasciitis, bilateral M72.2 Cavus deformity of both feet Q66.71; Q66.72 Time Spent (min) 30 Comment Ordered x-ray, prescribed NSAIDs
[2025-05-27 08:10] VITALS: BMI 20.2
--- OUTSIDE RECORDS SUMMARY | 2025-05-27 08:37 | XMS_ITS | Patient Health Record ---
Author Organization [facility] Address [address] [place] [id number] Care Team Providers Care [place] Machine Operator Name Role Phone Armin Rosas Jr Reason For Referral No Information Plan Of Treatment No Information
== END 2025-05-27 08:38 | disposition home or self-care (01) ==
LOC: HO.HPODS 08:04
PROVIDERS: PCP Internal Medicine; Visit Provider Student in an Organized Health Care Education/Training Program
DX: M72.2 Plantar fascial fibromatosis (principal); Q66.71 Congenital pes cavus, right foot; Q66.72 Congenital pes cavus, left foot
CPT/HCPCS: 99203

== ENCOUNTER → 2025-05-27 08:03 | Outpatient (BNVA) | payer OTHER, SELFPAY | PROVIDERS: PCP Internal Medicine; Visit Provider Student in an Organized Health Care Education/Training Program | DX: M72.2 Plantar fascial fibromatosis (principal); M79.671 Pain in right foot; Q66.71 Congenital pes cavus, right foot; Q66.72 Congenital pes cavus, left foot | CPT/HCPCS: 99202 ==

== ENCOUNTER 2025-06-05 14:05 | Outpatient (REF) | payer OTHER, SELFPAY ==
--- NOTE | ~2025-06-05 | US_ITS ---
EXAMINATION: MM DIAGNOSTIC DIGITAL BREAST TOMOSYNTHESIS, BILATERAL Left Limited ultrasound. CLINICAL INFORMATION: Left breast palpable mobile pea-sized lump upper outer breast. COMPARISON: Mammography: Comparison is made with relevant prior exams. TECHNIQUE: Digital breast mammography with tomosynthesis is performed in both the craniocaudal and mediolateral oblique views along with computer-aided detection (CAD). FINDINGS: The breasts are extremely dense, which lowers the sensitivity of mammography (ACR BI-RADS breast composition Category d). Right: There are no significant masses, abnormal calcifications, or other abnormalities. Left: BB marker in the low axilla upper outer breast at site of patient's palpable lump without underlying abnormal finding. Line no suspicious calcifications masses or other abnormal findings. Targeted color Doppler ultrasound scanning in the lower axilla upper outer quadrant area of patient's palpable lump demonstrates 2 normal-appearing lymph nodes. Results are provided to the patient at time of visit by the technologist. US/US breast LT limited mamm only IMPRESSION: Left: Normal lymph nodes correlating with the patient's palpable lump. Recommend clinical evaluation follow-up. Right: Negative.. ASSESSMENT: BI-RADS BI-RADS 2 - Benign Findings RECOMMENDATION: 1 year F/U This patient's information was entered into a reminder system with a target due date for their next mammogram. Electronically signed by: Sarah Mujica DO 06/05/2025 02:50 PM EDT
--- OUTSIDE RECORDS SUMMARY | 2025-06-05 17:51 | XMS_ITS | Patient Health Record ---
Author Organization [facility] Address [address] [place] [id number] Care Team Providers Care Lip[place] Sprayer Name Role Phone Armin Rosas Jr [phone] Reason For Referral No Information Plan Of Treatment No Information
== END 2025-06-05 14:06 | disposition home or self-care (01) ==
LOC: HO.MAMMO 14:05
PROVIDERS: PCP Internal Medicine; Visit Provider Internal Medicine
DX: N63.21 Unspecified lump in the left breast, upper outer quadrant (principal)
CPT/HCPCS: 76642; 77062; 77066

== ENCOUNTER → 2025-06-05 14:30 | Outpatient (BNV) | payer OTHER, SELFPAY | PROVIDERS: PCP Internal Medicine; Visit Provider Internal Medicine | DX: N63.21 Unspecified lump in the left breast, upper outer quadrant (principal) | CPT/HCPCS: 76642; 77062; 77066 ==